=== PATIENT | female | born 1980 | race Hispanic/Latino ===

== ENCOUNTER 2022-11-12 15:39 | Emergency (ER) | payer OTHER ==
[~2022-11-12] VITALS: Ht 152.4 cm; Wt 90.7 kg
[2022-11-12 15:50] VITALS: BP 119/73; PULSE 78; RESP 18; O2SAT 99
[2022-11-12] MEDS ORDERED: CARB100T4 PO (16:58)
[2022-11-12] MEDS ORDERED: DEXAMETHASONE SOD PHOSPHATE 4 MG/ML 1ML VIAL IV ONE (17:00)
[2022-11-12] MEDS ORDERED: DiphenhydrAMINE HCL 50 MG/ML VIAL IV ONE (17:00)
[2022-11-12] MEDS ORDERED: CARBAMAZEPINE 200 MG TABLET PO SCH (17:00)
[2022-11-12] MEDS ORDERED: METOCLOPRAMIDE 10 MG/2 ML VIAL IVP ONE (17:00)
[2022-11-12] MEDS ORDERED: FAMOTIDINE 20MG VIAL IV ONE (17:00)
== END 2022-11-12 18:02 | disposition home or self-care (01) ==
LOC: EDH 15:39
DX: G50.0 Trigeminal neuralgia (principal); Z88.5 Allergy status to narcotic agent; Z88.8 Allergy status to other drugs, medicaments and biological substances
CPT/HCPCS: 99284; 96374; 96375; J1100; J1200; J3490; J2765